=== PATIENT | female | born 1975 | race American Indian/Alaskan Native ===

== ENCOUNTER 2020-03-09 06:35 | Day surgery (SDC) | payer BC ==
[~2020-03-09] VITALS: Ht 177.8 cm; Wt 78.2 kg
[~2020-03-09 06:35] MED LIST: NO HOME MEDICATIONS
[2020-03-09] MEDS ORDERED: PRILOSEC 20MG20 MG PO (07:41)
[2020-03-09] MEDS ORDERED: CIPRO 500MG TA500 MG PO (07:41)
[2020-03-09 08:13] VITALS: BP 129/79; PULSE 73; TEMP 97.8
[2020-03-09 10:08] VITALS: BP 144/72; PULSE 58
[2020-03-09 10:15] VITALS: BP 131/97; PULSE 68
[2020-03-09 10:30] VITALS: BP 117/76; PULSE 65
[2020-03-09 10:45] VITALS: BP 132/78; PULSE 57; TEMP 97.9
--- NOTE | 2020-03-09 14:09 | NUR ---
PT ALERT AND AWAKE COMING OUT OF PACU. LUNGS CLEAR, HRR, BOWEL SOUNDS PRESENT. DENIES PAIN AND NAUSEA. PRESENT. REQUESTS DIET PEPSI AND BLUEBERRY MUFFIN. CALL LIGHT IN REACH.
--- NOTE | 2020-03-09 14:19 | NUR ---
PT UP TO VOID, WITH X1 ASSIST TO THE BATHROOM. PT VOIDED A SMALL AMOUNT OF LIGHT PINK URINE, DENIES BLOOD OR CLOTS. PT TOLERATING DIET PEPSI, BLUEBERRY MUFFIN AND CHOCOLATE PUDDING. DENIES NAUSEA, VOMITING OR PAIN.
--- NOTE | 2020-03-09 14:24 | NUR ---
PT TOLERATING FOOD AND FLUID. VSS, AFEBRILE. DENIES PAIN OR NAUSEA AT THIS TIME. IV DC'D, PT TOLERATED WELL AND IS WITHOUT PAIN, REDNESS OR SWELLING. DISMISSAL INSTRUCTIONS GIVEN, PT VOICES UNDERSTANDING. PT DISCHARGED OUT THROUGH ADMISSIONS INTO FAMILY VEHICLE. SPOUSE DRIVING.
== END 2020-03-09 11:10 | disposition home or self-care (01) ==
LOC: SDCO 06:35
DX: N20.1 Calculus of ureter (principal); K21.9 Gastro-esophageal reflux disease without esophagitis; Z80.3 Family history of malignant neoplasm of breast
CPT/HCPCS: C1769; C2617; J0690; J1100; J1885; J2405; J2704; J3010; J7120